=== PATIENT | female | born 1980 | race African-American/Black ===

== ENCOUNTER 2025-04-11 13:17 | Outpatient (CLI) | payer OTHER, SELFPAY ==
--- NOTE | ~2025-04-11 | US_ITS ---
US pelvic complete w TV Ordering provider: Jeff Santos MD History: . N94.9 - Unspecified condition associated with female mg... . Comparison: None. Technique: Transabdominal and endovaginal ultrasound of the pelvis (Doppler ultrasound interrogation techniques used as needed for this exam.) FINDINGS: CERVIX: Normal. UTERUS: Surgically removed. The vaginal cuff shows a few hyperechoic areas which may indicate calcifi cations. CUL DE SAC: No free fluid. RIGHT OVARY: Normal in size measuring 2.3x 1.5x 1.9 cm. Normal echotexture. Doppler vascular flow pre sent. LEFT OVARY: Normal in size measuring 3.3x 3.3x 2 0.7 cm. Normal echotexture. Doppler vascular flow pr esent. Dominant follicle is noted measuring 1.9 x 2.2 x 2.1 cm. ADNEXA: Normal. No mass. IMPRESSION: Status post hysterectomy. Dominant left ovarian follicle. Otherwise, normal pelvic ultrasound. Reviewed, dictated and finalized at location A. IMPRESSION: Status post hysterectomy. Dominant left ovarian follicle. Otherwise, normal pel marcia ultrasound.
[2025-04-13 03:23] LABS: FSH 18.3 mIU/mL
== END 2025-04-11 13:18 | disposition home or self-care (01) ==
LOC: ANHIMG 13:19
PROVIDERS: Visit Provider Obstetrics & Gynecology
DX: N94.9 Unspecified condition associated with female genital organs and menstrual cycle (principal); N95.1 Menopausal and female climacteric states; Z90.710 Acquired absence of both cervix and uterus
CPT/HCPCS: 36415; 76830; 76856; 83001